=== PATIENT | male | born 1970 | race Caucasian/White ===

== ENCOUNTER 2016-07-08 20:45 | Emergency (ER) | payer MEDICAID ==
[~2016-07-08] VITALS: Ht 157.5 cm; Wt 81.6 kg
[2016-07-08 20:55] VITALS: BP 129/90
--- NOTE | 2016-07-08 22:54 | NUR ---
PT TAKEN TO BED 6
--- NOTE | 2016-07-08 22:56 | NUR ---
SORETHROAT, FOR 5 DAYS. DENIES ANY MEDICAL HISTORY. PAIN SCALE 10. ERMD MADE AWARE.
--- NOTE | 2016-07-08 23:09 | NUR ---
Dr. Martell evaluating patient at bedside.
[2016-07-08] MEDS ORDERED: NACL 0.9% 1,000 ML IV ONE (23:10)
[2016-07-08] MEDS ORDERED: CLINDAMYCIN 600 MG in DEXTROSE 5% 50 ML IV ONE (23:10)
[2016-07-08] MEDS ORDERED: DEXAMETHASONE 10 MG/ML VIAL IM ONE (23:10)
[2016-07-08] MEDS ORDERED: KETOROLAC 30 MG/ML VIAL IVP ONE (23:10)
[2016-07-08] MEDS ORDERED: CLINDAMYCIN 600 MG/4 ML VIAL ONE (23:32)
[2016-07-09] MEDS ORDERED: BENZOCAINE 20% 57 GM CAN MC ONE (00:55)
[2016-07-09] MEDS ORDERED: LIDOCAINE/EPI 1% 1:100000 20 ML VIAL INJ ONE (01:05)
--- NOTE | 2016-07-09 01:35 | NUR ---
DR. PETE PERFORMS TOSIL ABSCESS ASPIRATION. PT. TOLERATED WELL.
[2016-07-09 02:50] VITALS: BP 141/78
--- NOTE | 2016-07-09 02:50 | NUR ---
Patient discharged with v/s stable. Written and verbal after care instructions given and explained. Patient alert, oriented and verbalized understanding of instructions. Ambulatory with steady gait. All questions addressed prior to discharge. ID band removed. Patient advised to follow up with PMD. Rx of CLINDAMYCIN 300 MG, NAPROSYN 500 MG, TYLENOL WITH CODEINE 120-12MG/5ML given. Patient educated on indication of medication including possible reaction and side effects. Opportunity to ask questions provided and answered.
== END 2016-07-09 02:50 | disposition home or self-care (01) ==
LOC: MED 20:45
DX: J36 Peritonsillar abscess (principal)
CPT/HCPCS: 10021; 36415; 70491; 80048; 85025; 96365; 96372; 96375; 99285; J1100; J1885; J2001; J3490; J7030; J7060; Q9967